=== PATIENT | male | born 1955 | race Caucasian/White ===

== ENCOUNTER 2018-04-09 17:13 | Emergency (ER) | payer MEDICAID ==
[2018-04-09 17:21] VITALS: BP 132/77; PULSE 85; RESP 18; TEMP 97.6; O2SAT 100
--- NOTE | 2018-04-09 17:32 | ED PDOC ---
Lower Extremity Pain/Injury Time Seen by Provider: 04/09/18 17:20 Chief Complaint (Nursing): Lower Extremity Problem/Injury Chief Complaint (Provider): Left Knee Pain History Per: Patient History/Exam Limitations: no limitations Onset/Duration Of Symptoms: Days (since yesterday) Current Symptoms Are (Timing): Still Present Severity: Moderate Pain Scale Rating Of: 6 Additional Complaint(s): Patient is a 62 year old male with a PMHx of arthritis, DM, and HTN who presents for evaluation of left knee pain since yesterday. Patient reports at onset he was walking when he felt a pulling sensation to the left knee. Patient reports a history of arthritis to both knees. Patient took Ibuprofen at 10am with no relief of symptoms. Pain worsens with movement and ambulation. Patient denies any prior knee injury or surgery. No other complaints at present. Denies: chest pain, SOB, cough. PMD: Davin Past Medical History Reviewed: Historical Data, Nursing Documentation, Vital Signs Vital Signs: Last Vital Signs Temp 97.6 F 04/09/18 17:20 Pulse 85 04/09/18 17:20 Resp 18 04/09/18 17:20 BP 132/77 04/09/18 17:20 Pulse Ox 100 04/09/18 17:20 - Medical History PMH: Arthritis, Back Problems (lumbar herniated discs and sciatica), Diabetes, HTN, Hypercholesterolemia - Surgical History Other surgeries: Right Knee Scope - Family History Family History: States: Unknown Family Hx - Social History Current smoker - smoking cessation education provided: No - Home Medications Home Medications: Ambulatory Orders Medication Instructions Recorded Acetaminophen/Oxycodone Hydr 1 tab PO Q6H PRN #20 tab 04/06/15 [Percocet 10/325 mg Tab] Alprazolam [Xanax] 1 mg PO BID PRN 05/07/15 Aspirin [Aspirin EC] 81 mg PO DAILY 05/07/15 Brimonidine 0.15% [Alphagan P 1 drop EACHEYE BID 05/07/15 0.15% Opht] DULoxetine [Cymbalta] 60 mg PO DAILY 05/07/15 Insulin Lispro, Recombinant 20 unit SC AC 05/07/15 [Humalog] Liraglutide [Victoza 2-Tony] 1.8 mg SC DAILY 05/07/15 Metformin Hydrochloride/Monica 1 tab PO BID 05/07/15 [Janumet 1000 mg-50 mg] Ramipril [Altace] 10 mg PO DAILY 05/07/15 Zolpidem Tartrate [Ambien] 10 mg PO HS 05/07/15 diltiaZEM CD [Cardizem CD] 180 mg PO DAILY 05/07/15 Insulin Detemir [Levemir] 40 unit SC BID #0 ml 05/09/15 Acetaminophen [Acetaminophen 8 650 mg PO Q8 PRN #21 tablet.er 04/09/18 Hour] Meloxicam [Mobic] 15 mg PO DAILY PRN #10 tab 04/09/18 - Allergies Allergies/Adverse Reactions: Allergies Allergy/AdvReac Type Severity Reaction Status Date / Time No Known Allergies Allergy Verified 04/09/18 17:19 Review of Systems ROS Statement: Except As Marked, All Systems Reviewed And Found Negative Musculoskeletal: Positive for: Other (knee pain- left) Physical Exam - Reviewed Nursing Documentation Reviewed: Yes Vital Signs Reviewed: Yes - Physical Exam Appears: Positive for: Well (Resting comfortably.), Non-toxic, No Acute Distress Head Exam: Positive for: ATRAUMATIC, NORMOCEPHALIC Skin: Positive for: Normal Color, Warm, Dry ENT: Positive for: Other (Mucus membranes moist. Airway patent, (-) stridor. ) Neck: Positive for: Painless ROM, Supple Cardiovascular/Chest: Positive for: Regular Rate, Rhythm Respiratory: Positive for: Normal Breath Sounds Extremity: Positive for: Normal ROM (of left knee with pain on flexion. ), Tenderness (diffuse to left knee. Sensation intact throughout. (+) distal pulses.), Swelling (small effusion of knee). Negative for: Pedal Edema, Calf Tenderness, Deformity, Other (instability on valgus or varus stress. (-) anterior/posterior drawer sign.) Neurologic/Psych: Positive for: Alert, Oriented (x3), Gait (limping in ED). Negative for: Motor/Sensory Deficits, Aphasia, Facial Droop - ECG O2 Sat by Pulse Oximetry: 100 (RA) Pulse Ox Interpretation: Normal Medical Decision Making Medical Decision Makin Initial impression: Acute knee pain, probable arthritis Plan: -Toradol 30 mg IM -Tylenol 650mg PO -Left Knee XR 3 views 1909 Knee XR reviewed, Date of service: 04/09/2018 PROCEDURE: Left Knee Radiographs. HISTORY: Pain. COMPARISON: None. FINDINGS: BONES: There is marked joint space narrowing at the medial femorotibial and patellofemoral compartments with gross cortical sclerosis and osteophyte formation developed. Lesser similar change appears at the lateral femoral compartment but without joint space narrowing. Subtle varus deformity of the left knee joint appreciated. No subluxation or dislocation identified. No fracture or destructive bony lesion appreciable. JOINTS: As above. JOINT EFFUSION: Gross suprapatellar bursa effusion identified. OTHER FINDINGS: Posterior thigh and knee soft tissue vascular calcification identified. IMPRESSION: Late stage osteoarthritis, tricompartmental with large suprapatellar bursa effusion identified. No acute fracture, subluxation or dislocation apparent. Jos bandage ordered and applied by ED staff. NV intact after placement. RICE encouraged. Patient supplied with crutches and instructed on crutch walking. On re-evaluation, patient reports improvement of symptoms. On exam, patient remains AAOx3, in no acute distress. Lungs clear to auscultation, cardiac RRR, repeat neuro exam shows no focal findings. Vitals stable. Lab/Diagnostic results d/w the patient in great detail. Diagnosis of acute knee pain, osteoarthritis of knee d/w the patient. Based on history, exam and diagnostic results, plan will be for outpatient follow up with PMD/ortho. Patient instructed to follow-up with pmd / referral provided / the clinic in 1- 2 days without fail. Advised to take medication as prescribed. Return to the emergency room at any time for any new or worsening symptoms. Patient states he fully agrees with and understands discharge instructions. States that he agrees with the plan and disposition. Verbalized and repeated discharge instructions and plan. I have given the patient opportunity to ask any additional questions. Disposition - Clinical Impression Clinical Impression: Acute knee pain, Osteoarthritis - Patient ED Disposition Is Patient to be Admitted: No Counseled Patient/Family Regarding: Studies Performed, Diagnosis, Need For Followup, Rx Given - Disposition Referrals: Angela Farmer MD [Staff Provider] - Dinah Jin MD [Family Provider] - Disposition: Routine/Home Disposition Time: 19:15 Condition: STABLE Additional Instructions: La atencin mdica de emergencia que recibi hoy se dirigi a isha sntomas agudos. Si le recetaron algn medicamento, llnelo y tmelo segn las indicaciones. Los sntomas pueden tardar varios grace en resolverse. Regrese al Departamento de Emergencias si isha sntomas empeoran, no mejoran o si tiene otros problemas. Comunquese con henry mdico dentro de 2 grace para omar nueva evaluacin y catrachito un seguimiento o llame a giacomo de los mdicos / clnicas a los que edwards sido referido y que figuran en el formulario de Informacin de visita al paciente que se incluye en henry paquete de karen. Lleve con usted a henry consulta de seguimiento toda la documentacin que recibi del karen junto con los medicamentos que est tomando. Nuestro tratamiento no puede reemplazar la atencin mdica continua por parte de un proveedor de atencin primaria (PCP) fuera del departamento de emergencias. Prescriptions: Acetaminophen [Acetaminophen 8 Hour] 650 mg PO Q8 PRN #21 tablet.er PRN Reason: Pain, Moderate (4-7) Meloxicam [Mobic] 15 mg PO DAILY PRN #10 tab PRN Reason: Pain, Moderate (4-7) Instructions: Osteoarthritis, How to Use an Elastic Bandage, Knee Pain Forms: [facility] (Macedonian) Print Language: KINYARWANDA - POA Present On Arrival: None
--- NOTE | 2018-04-09 18:48 | RAD ---
Date of service: 04/09/2018 PROCEDURE: Left Knee Radiographs. HISTORY: Pain. COMPARISON: None. FINDINGS: BONES: There is marked joint space narrowing at the medial femorotibial and patellofemoral compartments with gross cortical sclerosis and osteophyte formation developed. Lesser similar change appears at the lateral femoral compartment but without joint space narrowing. Subtle varus deformity of the left knee joint appreciated. No subluxation or dislocation identified. No fracture or destructive bony lesion appreciable. JOINTS: As above. JOINT EFFUSION: Gross suprapatellar bursa effusion identified. OTHER FINDINGS: Posterior thigh and knee soft tissue vascular calcification identified. IMPRESSION: Late stage osteoarthritis, tricompartmental with large suprapatellar bursa effusion identified. No acute fracture, subluxation or dislocation apparent.
== END 2018-04-09 19:25 | disposition home or self-care (01) ==
LOC: H.ER 17:13
DX: M17.12 Unilateral primary osteoarthritis, left knee (principal)
CPT/HCPCS: 73562; 96372; 99285; J1885